=== PATIENT | male | born 1970 | race Caucasian/White ===

== ENCOUNTER 2022-06-21 15:30 | Outpatient (CLI) | payer MEDICAID ==
[~2022-06-21 15:30] MED LIST: CLIN-97 PO; HYDR-4383 PO
== END 2022-06-21 23:59 | disposition home or self-care (01) ==
LOC: RAD 15:30
PROVIDERS: ATTEND Family Medicine
DX: I08.8 Other rheumatic multiple valve diseases (principal); R60.0 Localized edema
CPT/HCPCS: 93306